=== PATIENT | male | born 1980 | race Two or more races ===

== ENCOUNTER 2023-08-14 10:33 | Outpatient (REF) | payer MEDICAID, SELFPAY ==
[2023-08-14 14:49] LABS: MANUAL DIFF FLAG NO
[2023-08-14 14:55] LABS: Basophils Absolute Auto 0.1 X10*3/uL (0.0-0.2); Basophils Percent Auto 1.1 % (0-2); Eosinophils Absolute Auto 0.2 X10*3/uL (0.0-0.4); Eosinophils Percent Auto 2.3 % (0-4); Hematocrit 43.8 % (42.0-52.0); Hemoglobin 15.2 g/dl (14.0-18.0); Imm Gran Abs Auto 0.04 X10*3/uL (0.00-0.03); Imm Gran Pct Auto 0.5 % (0.0-0.4); Lymphocytes Absolute Auto 3.1 X10*3/uL (1.2-4.9); Lymphocytes Percent Auto 35.7 % (20-40); Mean Corpuscular HGB Conc 34.7 g/dl (31.0-36.0); Mean Corpuscular Hemoglobin 28.9 pg (27.0-33.0); Mean Corpuscular Volume 83.3 fL (80.0-98.0); Mean Platelet Volume 11.8 fL (9.4-12.4); Monocytes Absolute Auto 0.7 X10*3/uL (0.1-1.2); Monocytes Percent Auto 8.5 % (2-11); Neutrophils Absolute Auto 4.4 x10*3/uL (2.0-8.3); Neutrophils Percent Auto 51.9 % (45-73); Platelet Count 219 X10*3/uL (160-400); Red Blood Count 5.26 X10*6/uL (4.60-5.80); Red Cell Distribution Width 12.8 % (11.0-16.0); White Blood Count 8.6 X10*3/uL (4.8-10.8)
[2023-08-14 15:10] LABS: Alanine Aminotransferase 30 U/L (0-40); Anion Gap 11 (12-20); Aspartate Amino Transferase 15 U/L (5-37); Blood Urea Nitrogen 17 mg/dL (9-16); Calcium 9.9 mg/dL (8.4-10.2); Carbon Dioxide 26 mmol/L (22-29); Chloride 106 mmol/L (96-108); Estimated Glomerular Filt Rate > 60; Glucose Random 89 mg/dL (60-115); Iron 105 mcg/dL (45-160); Percent Iron Saturation 35 % (15-50); Potassium 4.1 mmol/L (3.3-5.1); Sodium 139 mmol/L (135-145); Total Iron Binding Capacity 298 mcg/dL (228-428); Unsaturated Iron Binding 193 ug/dL
[2023-08-14 15:29] LABS: Ferritin 247 ng/mL (20-250); TSH reflex Free T4 0.73 uIU/mL (0.32-4.0)
[2023-08-14 15:51] LABS: Folate 6.6 ng/mL (> or = 4.0); Vitamin B12 524 pg/mL (200-900)
== END 2023-08-14 10:34 | disposition home or self-care (01) ==
LOC: HO.CHCLDS 10:33
PROVIDERS: Visit Provider Pediatrics
DX: G47.33 Obstructive sleep apnea (adult) (pediatric) (principal); K21.9 Gastro-esophageal reflux disease without esophagitis; Z68.32 Body mass index [BMI] 32.0-32.9, adult; D64.9 Anemia, unspecified
CPT/HCPCS: 36415; 80048; 82607; 82728; 82746; 83540; 84443; 84450; 84460; 85025

== ENCOUNTER 2023-10-01 13:07 | Outpatient (REF) | payer MEDICAID, SELFPAY ==
[2023-10-01 15:09] LABS: Cholesterol 160 mg/dL (<200); HDL Cholesterol 31 mg/dL (>40); LDL Cholesterol Calculated 109 mg/dL (<100); Triglycerides 100 mg/dL (<150)
== END 2023-10-01 13:08 | disposition home or self-care (01) ==
LOC: HO.CHCLDS 13:07
PROVIDERS: Visit Provider Family Medicine
DX: E78.2 Mixed hyperlipidemia (principal)
CPT/HCPCS: 36415; 80061

== ENCOUNTER 2024-07-28 16:11 | Outpatient (REF) | payer SELFPAY ==
[2024-07-28 17:47] LABS: Appearance Urine Clear; Color Urine Yellow; Glucose Urine UA Negative (Negative); Leukocyte Esterase Urine Negative (Negative); Nitrite Urine Negative (Negative); Specific Gravity - Urine 1.015 (1.005-1.025); Urine Blood Negative (Negative); Urine Ketones Negative (Negative); Urine Protein Negative (Neg-Trace)
[2024-07-28 17:49] LABS: Bacteria Urine None Seen (None Seen); Hyaline Casts Urine 0-2 /LPF (0-2); RBC Urine 0-2 /HPF (0-2); Squamous Epithelial Cell Urine 0-2 /HPF (0-2); WBC Urine 0-5 /HPF (0-5)
== END 2024-07-28 16:12 | disposition home or self-care (01) ==
LOC: HO.CHCLNP 16:11
PROVIDERS: Visit Provider Internal Medicine
DX: R31.0 Gross hematuria (principal)
CPT/HCPCS: 81001

== ENCOUNTER 2025-06-01 08:01 | Outpatient (REF) | payer MEDICAID, SELFPAY ==
--- OUTSIDE RECORDS SUMMARY | 2025-05-31 11:15 | XMS_ITS | Encounter Summary ---
Author Organization [employer] Address [address] [place] [address] Care Team Providers Care Ruffling Hemmer Automatic Name Role Phone Priscilla Jones MD Primary Care Provider [phone] Reason for Referral * Cardiology (Routine) - Authorized Specialty Diagnoses / Procedures Referred By Contac t Referred To Contact Cardiology Diagnoses Atypical chest pain Procedures Holter monitor - 72 hour Candice Valle MD [address] [place] [address] Phone: tel: fax: [address] Phone: tel: fax: Referral ID Status Reason Start Date Expiration Date V isits Requested Visits Authorized [id number] Authorized 05/31/2025 05/31/2026 1 1 Encounter Details Date Type Department Care Team (Late st Contact Info) Description 05/31/2025 11:15 AM EDT Office Visit [facility] [address] [place] [address] Candice Valle MD [address] [place] [address] Atypical chest pain (Primary Dx); Mixed hyperlipidemia; Dietary counseling; Exercise counseling; COLLEEN on CPAP; Supraclavicular adenopathy Social History Tobacco Use Types Packs/Day Years Used Date Smoking Tobacco: Never Passive Smoke Exposure: Never Smokeless Tobacco: Never Alcohol Use Standard Drinks/Week Comments Never 0 (1 standard drink = 0.6 oz pur e alcohol) Depression Answer Date Recorded Patient Health Questionnaire-9 Score 0 09/19/2022 Housing Stability Answer Date Recorded What is your housing situation today? I have jodi tinoco 09/29/[address] you li ve. Do you have problems with any of the following? None of the above 09/29/2023 Food Insecurity Answer Date Recorded Within the past 12 months, y ou worried that your food would run out before you got money to buy more: Never True 09/29/2023 Within the past 12 months,th e food you bought just didn't last and you didn't have enough money to get more: Never True Transportation Answer Date Recorded In the past 12 months, has l ack of transportation kept you from medical appts, meetings, work or from getting things needed for daily living? No 09/29/2023 Utilities Answer Date Recorded In the past 12 months, has t he electric, gas, oil or water company threatened to shut off services in your home? No 09/29/2023 Depression Answer Date Recorded Patient Health Questionnaire-2 Score 0 09/19/2022 Sex and Gender Information Value Date Recorded Sex Assigned at Male 07/31/2022 8:37 AM EST Legal Sex Male 8:35 AM EST Gender Identity Male 07/31/2022 8:37 AM EST Sexual Orientation Choose not to disclose 2022 9:20 AM EST documented as of this encounter Last Filed Vital Signs Vital Sign Reading Time Taken Comments Blood Pressure 112/80 05/31/2025 11:34 AM EDT Pulse 85 05/31/2025 11:34 AM EDT Temperature 36.6 C (97.8 F) 05/31/2025 11:34 AM EDT Respiratory Rate 20 05/31/2025 11:34 AM EDT Oxygen Saturation 95% 05/31/2025 11:34 AM EDT Inhaled Oxygen Concentration - - Weight 97.1 kg (214 lb) 05/31/2025 11:34 AM EDT Height - - Body Mass Index 33.98 07/28/2024 10:01 AM EST documented in this encounter Progress Notes * Candice Valle MD - 05/31/2025 11:15 AM EDT Subjective Patient ID: Sivakumar Bhat is a 45 y.o. male who presents for chest pain. Sivakumar is a 45-year-old male patient of Dr. Jones here for follow-up of chest pain. Patient states has been getting palpitations and occasional chest pain for the past year or so. Patient has a past medical history of hypertension, obesity, and anxiety for which he gets marijuana at the dispensary. Patient is not a smoker or drinker. He had an EKG done today which showed a heart rate of 71 bpm andsinus rhythm. Patient states has a family history of CAD in his dad and A-fib in his mother. Chest discomfort can happen at rest or exertion and is associated with palpitations and shortness of breath. Patient denies fever, weight loss or hemoptysis. No recent travel. Patient's last chest x-ray was from 2019 and was normal. PCP had referred him for an outpatient stress test last year but due to lack of insurance he never went. He did have a recent sleep study and has been prescribed his CPAP machine which he is using nightly and has been helping with energy level. Review of Systems Constitutional: Negative for activity change, chills, fatigue, fever and unexpected weight change. HENT: Negative for trouble swallowing. Respiratory: Positive for chest tightness. Negative for cough, shortness of breath and wheezing. Cardiovascular: Positive for chest pain and palpitations. Negative for leg swelling. Gastrointestinal: Negative for abdominal pain and blood in stool. Endocrine: Negative for polydipsia and polyuria. Genitourinary: Negative for decreased urine volume, difficulty urinating, dysuria and hematuria. Musculoskeletal: Negative for arthralgias, gait problem and neck pain. Skin: Negative for color change and rash. Neurological: Negative for dizziness and headaches. Hematological: Negative for adenopathy. Psychiatric/Behavioral: Negative for dysphoric mood, hallucinations, sleep disturbance and suicidalideas. The patient is not nervous/anxious. Objective BP 112/80 (BP Location: Left arm, Patient Position: Sitting, BP Cuff Size: Adult) Pulse85 Temp 97.8 ??F (36.6 ??C) (Oral) Resp 20 Wt 214 lb (97.1 kg) SpO2 95% BMI 33.98 kg/m?? Physical Exam Vitals reviewed. Constitutional: General: He is not in acute distress. Appearance: He is obese. He is not ill-appearing. HENT: Head: Normocephalic. Mouth/Throat: Mouth: Mucous membranes are moist. Cardiovascular: Rate and Rhythm: Normal rate and regular rhythm. Heart sounds: Normal heart sounds. No murmur heard. No gallop. Pulmonary: Effort: Pulmonary effort is normal. No respiratory distress. Breath sounds: Normal breath sounds. No wheezing. Abdominal: General: There is distension. Palpations: There is no mass. Tenderness: There is no abdominal tenderness. Musculoskeletal: Cervical back: Normal range of motion. Right lower leg: No edema. Left lower leg: No edema. Lymphadenopathy: Upper Body: Right upper body: No supraclavicular, axillary or epitrochlear adenopathy. Left upper body: Supraclavicular adenopathy present. No axillary or epitrochlear adenopathy. Skin: Findings: No rash. Neurological: General: No focal deficit present. Mental Status: He is alert and oriented to person, place, and time. Mental status is at baseline. Psychiatric: Mood and Affect: Mood normal. Thought Content: Thought content normal. Judgment: Judgment normal. Assessment/Plan Diagnoses and all orders for this visit: Atypical chest pain Comments: Could be secondary to anxiety or any underlying issue. Check labs and chest x- ray today. Order Holter monitor as outpatient. Refer to cardio if needed. Orders: - XR Chest 2 Views; Future - Basic Metabolic Panel, Fasting; Future - CBC auto differential; Future - TSH W/Reflex to FT4; Future - Hepatic Function Panel; Future - Lipid Panel, Standard; Future - Sed Rate by Modified Westergren; Future Mixed hyperlipidemia Comments: Recheck lipid profile. Treat if needed follow-up with PCP scheduled.. Orders: - Basic Metabolic Panel, Fasting; Future - CBC auto differential; Future - TSH W/Reflex to FT4; Future - Hepatic Function Panel; Future - Lipid Panel, Standard; Future - Sed Rate by Modified Westergren; Future Dietary counseling Exercise counseling COLLEEN on CPAP Comments: Continue good compliance with CPAP follow-up with PCP and sleep medicine. Supraclavicular adenopathy Comments: Patient has a left-sided supraclavicular adenopathy palpable on exam today. Patient states this seems to have been noticed in his last ER visit. Labs and chest x-ray ordered today. Call patient with results and order ultrasound of adenopathy. Follow-up with me or PCP scheduled. PCP made aware of this finding. documented in this encounter Plan of Treatment Upcoming Encounters Date Type Department Care Team (Late st Contact Info) Description 07/14/2025 2:30 PM EST Office Visit [facility] MED & PEDS [address] [place] [address] Priscilla Jones MD [address] [place] [address] Scheduled Orders Name Type Priority Associated Diagnoses Orde r Schedule XR Chest 2 Views Imaging Routine Atypical chest pain Expected: 05/31/2025, Expires: 05/31/2026 Basic Metabolic Panel, Fasting Lab Routine Atypical chest pain Mixed hyperlipidemia Expected: 05/31/2025 (Approximate), Expires: 05/31/2026 CBC auto differential Lab Routine Atypical chest pain Mixed hyperlipidemia Expected: 05/31/2025 (Approximate), Expires: 05/31/2026 TSH W/Reflex to FT4 Lab Routine Atypical chest pain Mixed hyperlipidemia Expected: 05/31/2025 (Approximate), Expires: 05/31/2026 Hepatic Function Panel Lab Routine Atypical chest pain Mixed hyperlipidemia Expected: 05/31/2025 (Approximate), Expires: 05/31/2026 Lipid Panel, Standard Lab Routine Atypical chest pain Mixed hyperlipidemia Expected: 05/31/2025 (Approximate), Expires: 05/31/2026 Sed Rate by Modified Westergren Lab Routine Atypical chest pain Mixed hyperlipidemia Expected: 05/31/2025, Expires: 05/31/2026 Holter monitor - 72 hour Cardiac Services Routine Atypical chest pain Expected: 05/31/2025 (Approximate), Expires: 05/31/2027 documented as of this encounter Visit Diagnoses Diagnosis Atypical chest pain- Primary Other chest pain Mixed hyperlipidemia Dietary counseling Dietary surveillance and counseling Exercise counseling COLLEEN on CPAP Supraclavicular adenopathy Enlargement of lymph nodes documented in this encounter Additional Health Concerns Assessment Noted Time PHQ-9 Depression Total Score: 0 09/19/19 23 9:51 AM EST documented as of this encounter Care Teams Ruffling Hemmer Automatic Relationship Specialty Start Date End Date Priscilla Jones MD [address] [place] [address] PCP - General Family Medicine 08/19/22 documented as of this encounter
--- OUTSIDE RECORDS SUMMARY | 2025-06-01 08:08 | XMS_ITS | Clinical Summary ---
Author Organization [facility] Address [address] [place] [address] Care Team Providers Care Engineer Process Name Role Phone Jessica Pacheco PA-C Primary Care Provider [phone] Source Comments PLEASE NOTE, if this patient is a minor, it may be UNLAWFUL to discuss sensitive information that is contained in these records (such as FAMILY PLANNING, MENTAL HEALTH or SUBSTANCE ABUSE) with the minor patient's parent or other person without the patient's specific authorization.[facility] Allergies No known active allergies Medications VENTOLIN HFA 90 mcg/actuation inhaler Inhale 90 Inhalers into the lungs 7 Active fluticasone (FLOVENT HFA) 220 mcg/actuation inhaler Inhale 2 Puffs into the lungs 2 (two) times daily 1 Inhaler 5 8 Active omeprazole (PRILOSEC) [address] Clements ons:Dyspepsia Take 1 Cap by mouth every morning before breakfast Do not crush or chew. 30 Cap 5 8 Active levalbuterol tartrate (XOPENEX HFA) 45 mcg/actuation inhaler INHALE 2 PUFFS EVERY 4 HOURS NEEDED FOR WHEEZING OR SHORTNESS OF BREATH 3 8 Active SYMBICORT 160-4.5 mcg/actuation inhaler INHALE 2 PUFFS TWICE A DAY EVERY MORNING AND THE EVENING, RINSE MOUTH AND THROAT AFTER USE 3 8 Active Active Problems Problem Noted Date Diagnosed Date LLQ pain 04/16/2018 Overview (04/16/2018): CT scan done on 04-15-18 showed sigmoid diverticulitis. No abscess or free perforation identified. Trace ascites, likely reactive. 2cm intramural lipoma at rectosigmoid junction - incidental finding. Dysphagia 03/18/2018 Overview (03/31/2018): Sees Dr. Kearney - EGD done on 03-16-18 WNL. Feels that it is d/t anxiety. COLLEEN on CPAP 09/15/2017 Mild intermittent asthma without complication Atypical chest pain 09/10/2017 Bilateral carpal tunnel syndrome 09/10/2017 Mixed hyperlipidemia 09/10/2017 Hx of appendectomy 09/10/2017 Immunizations Immunization Administration Dates Next Due Flu, Preservative Free 09/10/2017 INFLUENZA, SEASONAL, INJECTABLE 09/23/2016 PNEUMOCOCCAL POLYSACCHARIDE PPV23 (Pneumovax 23) 09/23/2016 TDAP 12/12/2015 Family History Medical History Relation Name Comments Heart Problems Father Hypertension Mother Relation Name Status Comments Father Alive Mother Alive Social History Tobacco Use Types Packs/Day Years Used Date Smoking Tobacco: Former Smokeless Tobacco: Former Alcohol Use Standard Drinks/Week Comments No 0 (1 standard drink = 0.6 oz pur e alcohol) Social Connections Answer Date Recorded Social Connections and Isolation 0 04/20/2019 Financial Resource Strain Answer Date R ecorded Financial Resource Strain 0 2018 Stress Answer Date Recorded Stress 0 04/20/2019 Physical Activity Answer Date Recorded Physical Activity 0 04/20/2019 Food Insecurity Answer Date Recorded Food 0 04/20/2019 Transportation Needs Answer Date Record ed Transportation 0 04/20/2019 Housing Stability Answer Date Recorded Housing 0 04/20/2019 Safety and Environment Answer Date Fortino rded Safety 0 04/20/2019 Utilities Answer Date Recorded Utilities 0 04/20/2019 Employment Answer Date Recorded Employment 0 04/20/2019 Sex and Gender Information Value Date Recorded Sex Assigned at Male 09/10/2017 10:48 AM PST Legal Sex Male 7:19 AM PDT Gender Identity Male 09/10/2017 10:48 AM PST Sexual Orientation Straight 09/10/2017 10 :48 AM PST Last Filed Vital Signs Vital Sign Reading Time Taken Comments Blood Pressure 140/70 02/17/2018 10:26 AM EDT Pulse 95 02/17/2018 10:26 AM EDT Temperature 36.8 C (98.3 F) 02/17/2018 10:26 AM EDT Respiratory Rate 18 02/17/2018 10:26 AM EDT Oxygen Saturation 98% 02/02/2018 10:38 AM EDT Inhaled Oxygen Concentration - - Weight 99.8 kg (220 lb) 02/17/2018 10:26 AM EDT Height 170 cm (5' 6.93 ) 02/17/2018 10:26 AM EDT Body Mass Index 34.53 02/17/2018 10:26 AM EDT Plan of Treatment Not on file Insurance [facility] Care Teams Engineer Process Relationship Specialty Start Date End Date Jessica Pacheco PA-C [facility] [place] [address] PCP - General Family Medicine, Physician 04/06/19
--- OUTSIDE RECORDS SUMMARY | 2025-06-01 08:08 | XMS_ITS | Encounter Summary ---
Author Organization [facility] Address [address] [place] [address] Care Team Providers Care Mining Teacher Name Role Phone Priscilla Jones MD Primary Care Provider [phone] Reason for Visit * Reason Onset Date Comments Nurse Triage 05/30/2025 Encounter Details Date Type Department Care Team ([facility] st Contact Info) Description 05/30/2025 Telephone [facility] [address] [place], [place] [id number] Priscilla Jones MD [address] [place] [address] Nurse Triage Social History Tobacco Use Types Packs/Day Years Used Date Smoking Tobacco: Never Passive Smoke Exposure: Never Smokeless Tobacco: Never Alcohol Use Standard Drinks/Week Comments Never 0 (1 standard drink = 0.6 oz pur e alcohol) Depression Answer Date Recorded Patient Health Questionnaire-9 Score 0 09/19/2022 Housing Stability Answer Date Recorded What is your housing situation today? I have jodialbin tinoco 09/29/[address] you [...] t he electric, gas, oil or water [employer] threatened to shut off services in your home? No 09/29/2023 Depression Answer Date Recorded Patient Health Questionnaire-2 Score 0 09/19/2022 Sex and Gender Information Value Date Recorded Sex Assigned at Male 07/31/2022 8:37 AM EST Legal Sex Male 8:35 AM EST Gender Identity Male 07/31/2022 8:37 AM EST Sexual Orientation Choose not to disclose 2022 9:20 AM EST documented as of this encounter Miscellaneous Notes * Telephone Encounter - Renay Oconnell RN - 05/30/2025 4:50 PM EDT Pt walked into office complaining of chest pain to FD staff. Author triaged pt. Vitals: 97.3 F oral / 68 HR regular / 20 resp rate / 118/68 R arm sit adult large / 98 % o2 room air Alert and oriented to person place time and situation. Conversation linear. No accessory muscle usewith breathing, color normal for ethnicity, no signs of flushing or pallor, mucous membranes moist.Lung sounds clear bilaterally. Pt reporting that he has been experiencing palpitations intermittently after drinking coffee or after going up 2 flights of stairs. Pain eases with rest. Pt reported that today he went to bed around 5:30 AM this morning and awoke at 2:00 PM this afternoon. Denies recent alcohol or tobacco use, doesreport recent cannabis use prior to going to bed at 5:30 AM. He was on the phone call and was having a cup of coffee and experienced episode of a palpitations in chest. Pt decided to come to office today to try and schedule an appointment. Pt reported he went to ED for chest pain prior but had leftwithout being seen but reports normal labs and normal EKG. Pt reports that he has been compliant with his BP medications. Pt reports that he only uses his Symbicort as needed instead of scheduled andhas been more months now, stated he did not feel a difference on Symbicort and is using albuterol inhaler more frequently now. Appointment scheduled for tomorrow 05/31/25 for pt to be evaluated by provider as office is closed. Author reviewed ER precautions with pt and if experiencing shortness of breath without relief of rescue inhaler or chest pain returns. Author advised for pt to take medications as prescribed. Pt verbalized understanding and agreement with plan. documented in this encounter Plan of Treatment Upcoming Encounters Date Type Department Care Team (Late st Contact Info) Description 07/14/2025 2:30 PM EST Office Visit [facility] MED & PEDS [address] [place] [address] Priscilla Jones MD [address] [place] [address] documented as of this encounter Visit Diagnoses Not on filedocumented in this encounter Additional Health Concerns Assessment Noted Time PHQ-9 Depression Total Score: 0 09/19/19 23 9:51 AM EST documented as of this encounter Care Teams Mining Teacher Relationship Specialty Start Date End Date Priscilla Jones MD [address] [place] [address] PCP - General Family Medicine 08/19/22 documented as of this encounter
--- OUTSIDE RECORDS SUMMARY | 2025-06-01 08:08 | XMS_ITS ---
Author Name [facility] Organization Unknown Care Team Organization Name Specialty Phone Email Start Date End Da [facility] 2023 [facility] 07/03/2022
--- OUTSIDE RECORDS SUMMARY | 2025-06-01 08:08 | XMS_ITS | Encounter Summary ---
Author Organization [facility] Address [address] [place] [address] Care Team Providers Care Trap Operator Name Role Phone Priscilla Jones MD Primary Care Provider [phone] Encounter Details Date Type Department Care Team (Late st Contact Info) Description 08/03/2024 Telephone [facility] [address] [place] [address] [place] Social History Tobacco Use Types Packs/Day Years Used Date Smoking Tobacco: Every Day Cigarettes Passive Smoke Exposure: Never Smokeless Tobacco: Never [...] encounter Miscellaneous Notes * Telephone Encounter - Praful Schrader - 08/03/2024 12:20 PM EST PT is returning missed call. Please call him back. [facility] was unavailable CS documented in this encounter Plan of Treatment Upcoming Encounters Date Type Department Care Team (Late st Contact Info) Description 07/14/2025 2:30 PM EST Office Visit [facility] PEDS [address] [place] [address] Priscilla Jones MD [address] [place] [address] documented as of this encounter Visit Diagnoses Not on filedocumented in this encounter Additional Health Concerns Assessment Noted Time PHQ-9 Depression Total Score: 0 09/19/19 9:51 AM EST documented as of this encounter Care Teams Trap Operator Relationship Specialty Start Date End Date Priscilla Jones MD [address] [place] [address] PCP - General Family Medicine 08/19/22 documented as of this encounter
--- OUTSIDE RECORDS SUMMARY | 2025-06-01 08:09 | XMS_ITS | Clinical Summary ---
Author Organization [facility] Address [address] [place] [address] Care Team Providers Care Parts Order And Stock Clerk Name Role Phone Chuy Mccall MD Primary Care Provider [phone] Allergies No known active allergies Medications OMEprazole (PriLOSEC) 10 MG capsule Take 10 mg by mouth daily. Active Social History Tobacco Use Types Packs/Day Years Used Date Smoking Tobacco: Never Assessed Sex and Gender Information Value Date Recorded Sex Assigned at Not on file Legal Sex Male 2:27 PM EDT Gender Identity Not on file Sexual Orientation Not on file Last Filed Vital Signs Vital Sign Reading Time Taken Comments Blood Pressure 155/79 02/20/2020 7:52 PM EDT Pulse 73 02/20/2020 7:52 PM EDT Temperature 36.1 C (96.9 F) 02/20/2020 1:29 PM EDT Respiratory Rate 18 02/20/2020 7:52 PM EDT Oxygen Saturation 98% 02/20/2020 7:52 PM EDT Inhaled Oxygen Concentration - - Weight - - Height - - Body Mass Index - - Plan of Treatment Health Maintenance Due Date Last Done Comments Hepatitis C Virus Screening 1982 HIV Screening 1995 DTaP/Tdap/Td Vaccines (1 - Tdap) 2001 Hepatitis B Vaccines (1 of 3 - 19+ 3-dose series) 2001 HPV Vaccines (1 - 3-dose SCD M series) 2009 Influenza Vaccine 04/01/2025 09/10/2017 COVID-19 Vaccine (2 - 2024-2 6 season) 2025 12/19/2020 Pneumococcal Vaccine: Pediat berna (0-5 Years) and At-Risk Patients (6 to 49 Years) Aged Out No longer eligible b ased on patient's age to complete this topic Insurance [facility] Care Teams Parts Order And Stock Clerk Relationship Specialty Start Date End Date Chuy Mccall MD [address] [facility] [address] [place] [address] PCP - General 06/06/18
--- OUTSIDE RECORDS SUMMARY | 2025-06-01 08:09 | XMS_ITS | Encounter Summary ---
Author Organization [facility] Address [address] [place] [address] Care Team Providers Care Investment Officer Name Role Phone Chuy Mccall MD Primary Care Provider [phone] Encounter Details Date Type Department Care Team (Late st Contact Info) Description 06/23/2020 Lab Requisition [facility] [address] [place] [address] Gaudencio Ayers PA-C [address] [place] [id number] Encounter for laboratory testing for COVID-19 virus Social History Tobacco Use Types Packs/Day Years Used Date Smoking Tobacco: Never Assessed Sex and Gender Information Value Date Recorded Sex Assigned at Not on file Legal Sex Male 2:27 PM EDT Gender Identity Not on file Sexual Orientation Not on file documented as of this encounter Plan of Treatment Not on file documented as of this encounter Procedures Procedure Name Priority Date/Time Associated Diagnosis Comments (REPORT) SARS COV-2 RNA (COVID-19), QUAL Routine 06/23/2020 2:03 PM EDT Encounter for laboratory testing for COVID-19 virus [ICD-10-CM] documented in this encounter Results * SARS CoV-2 RNA (COVID-19), Qual (06/23/2020 2:03 PM EDT) Pathologist [facility] SARS CoV 2 RNA, Qual NOT DETECTED NOT DETECTED 06/25/2020 8:00 AM EDT [facility] Comment: A Not Detected (negative) test result for this test means that SARS-CoV-2 RNA was not present in the specimen above the limit of detection. A negative result does not rule out the possibility of COVID-19 and should not be used as the sole basis for treatment or patient management decisions. If COVID-19 is still suspected, based on exposure history together with other clinical findings, re-testing should be considered in consultation with public health authorities. Laboratory test results should always be considered in the context of clinical observations and epidemiological data in making a final diagnosis and patient management decisions. REFERENCE RANGE: NOT DETECTED This patient specimen was tested using an FDA EUA pooling method. Negative results from pooled testing should not be treated as definitive. If the patient's clinical signs and symptoms are inconsistent with a negative result or results are necessary for patient management, then the patient should be considered for individual testing. Specimens with low viral loads may not be detected in sample pools due to the decreased sensitivity of pooled testing. Please review the Fact Sheets and FDA authorized labeling available for health care providers and patients using the following websites: https://www.[employer]/home/Covid-19/HCP/QuestLDTP/ fact-sheet https://www.[employer]/home/Covid-19/Patients/QuestLDTP/ fact-sheet.html This test has been authorized by the FDA under an Emergency Use Authorization (EUA) for use by authorized laboratories. Due to the current public health emergency, [facility] is receiving a high volume of samples from a wide variety of swabs and media for COVID-19 testing. In order to serve patients during this public health crisis, samples from appropriate clinical sources are being tested. Negative test results derived from specimens received in non-commercially manufactured viral collection and transport media, or in media and sample collection kits not yet authorized by FDA for COVID-19 testing should be cautiously evaluated and the patient potentially subjected to extra precautions such as additional clinical monitoring, including collection of an additional specimen. Methodology: Nucleic Acid Amplification Test (NAAT) includes RT-PCR or TMA Additional information about COVID-19 can be found at the [facility] website: www.[employer]/Covid19. Microbiology Nasopharyngeal swab / Unknown 06/23/2020 2:03 PM EDT 06/23/2020 2:03 PM EDT [facility] 06/25/2020 8:00 AM EDT Performing Organization Information: Site ID: [id number] Name: [facility] Address: [address] [place] [address] [address] [address] Director: COLLETTE BAHENA MD [facility] License number [id number] Gaudencio Ayers PA-C BODY FLUIDS AND STOOLS OR DERABLES Final Result Performing Organization Address City/State/[facility] de Phone Number [facility] documented in this encounter Visit Diagnoses Diagnosis Encounter for laboratory testing for COVID-19 virus documented in this encounter Care Teams Investment Officer Relationship Specialty Start Date End Date Chuy Mccall MD [address] [facility] Dolly [address] [address] PCP - General 06/06/18 documented as of this encounter
--- OUTSIDE RECORDS SUMMARY | 2025-06-01 08:09 | XMS_ITS | Clinical Summary ---
Author Organization [employer] Address [address] [facility] [address] [place] [address] Care Team Providers Care Rag Shredder Name Role Phone Priscilla Jones MD Primary Care Provider [phone] Allergies No known active allergies Medications Symbicort 160-4.5 MCG/ACT inhalerIndicatio ns:Moderate persistent asthma, unspecified whether complicated INHALE TWO PUFFS TWICE DAILY, RINSE MOUTH AFTER USE 10.2 g 2 4 Active Additional Information Patient not taking.Reported on 08/19/2024 acetaminophen (Tylenol) 325 MG tablet TAKE 2 TABLETS BY MOUTH EVERY 4 HOURS 3 Active montelukast (Singulair) 10 MG tabletIndication s:Moderate persistent asthma, unspecified whether complicated Take 1 tablet (10 mg) by mouth in the morning. 90 tablet 1 4 Active amLODIPine (Norvasc) 5 MG tabletIndication s:Elevated blood pressure reading Take 1 tablet (5 mg) by mouth in the morning. 30 tablet 4 Active Additional Information Patient not taking.Reported on 08/19/2024 Blood Pressure kit 1 Units in the morning. 1 kit 4 Active Additional Information Patient not taking.Reported on 08/19/2024 omeprazole (PriLOSEC) [address] capsuleIndicatinorma ns:Gastroesophag eal reflux disease, unspecified whether esophagitis present TAKE ONE CAPSULE DAILY BEFORE BREAKFAST 90 capsule 1 4 Active Additional Information Patient not taking.Reported on 08/19/2024 Ventolin HFA 108 (90 Base) MCG/ACT inhalerIndicatio ns:Moderate persistent asthma, unspecified whether complicated INHALE TWO puffs BY MOUTH EVERY FOUR HOURS NEEDED FOR WHEEZING 18 g 1 12/09/202 4 Active Additional Information Patient not taking.Reported on 08/19/2024 Active Problems Problem Noted Date Diagnosed Date Elevated blood pressure reading 09/29/2023 Assessment & Plan (09/29/2023 2:33 PM EST): Uncontrolled: upon visit, patient states having constant elevated blood pressure readings at home, therefore, patient will be provided with a blood pressure kit and a low dose of BP medications. Advised that won't see any results after 3-4 days after first dose. Recommended to keep monitoring blood pressure at home, and bring readings upon next office visit. -Follow up in two weeks. Moderate persistent asthma 08/19/2022 Overview (09/19/2022): Moderate persistent asthma Recommend compliance with symbicort and added singulair to regimen, f/u 2 months. Assessment & Plan (09/29/2023 2:33 PM EST): Patient that presented visit with concerns of asthma will be provided with medication. Assessment & Plan (08/19/2022 9:48 AM EST): Patient not compliant w/ inhalers, will refill his inhalers and f/up next month, Will need ACT and adjust regimen as needed Gastroesophageal reflux disease 08/19/2022 Assessment & Plan (08/19/2022 9:49 AM EST): Requested refill for PPI, refilled, will f/u in 1 month Class 1 obesity due to exces s calories with body mass index (BMI) of 32.0 to 32.9 in adult 08/19/2022 Assessment & Plan (08/19/2022 9:49 AM EST): Patient with obesity, poor diet. Will send labs and review in next scheduled visit. LLQ pain 04/16/2018 Overview (08/19/2022): CT scan done on 04-15-18 showed sigmoid diverticulitis. No abscess or free perforation identified. Trace ascites, likely reactive. 2cm intramural lipoma at rectosigmoid junction - incidental finding. COLLEEN on CPAP 09/15/2017 Assessment & Plan (08/19/2022 9:46 AM EST): Patient new to system, reports 5 yrs of COLLEEN on CPAP, unknown settings, not feeling rested, will send to sleep specialist Atypical chest pain 09/10/2017 Assessment & Plan (10/16/2023 2:30 PM EST): Patient still reports chest pain. Since he is an active smoker I have advised for him to get a stress test to assess what is occurring. During his next hyperlipidemia F/U we will follow up on chest pain and proceed with treatment plan if needed at that time. Assessment & Plan (08/19/2022 9:50 AM EST): > 1 yr hx of central chest pain, reports happens random. Patient is obese and w/ poor diet. Will benefit of coronary syndrome w/u, will send to cards. Bilateral carpal tunnel syndrome 09/10/2017 Hx of appendectomy 09/10/2017 Mixed hyperlipidemia 09/10/2017 Assessment & Plan (10/16/2023 2:31 PM EST): Patient has uncontrolled hyperlipidemia since last time I saw him. I have educated him on nutritional changes to control hyperlipidemia. I will F/U with patient in 3 months. Labs: Lipid panel Assessment & Plan (09/29/2023 2:33 PM EST): Patient will be send for labs for further evaluation. -Labs: Lipid Panel. Resolved Problems Problem Noted Date Diagnosed Date Resolved Date Dysphagia 03/18/2018 08/19/2022 Overview (08/19/2022): Sees Dr. Kearney - EGD done on 03-16-18 WNL. Feels that it is d/t anxiety. Mild intermittent asthma without complication 09/10/19 18 08/19/2022 Encounters Date Type Department Care Team Description 05/31/2025 11:15 AM EDT Office Visit [facility] [address] [place] [address] Candice Valle MD Atypical chest pain (Primary Dx); Mixed hyperlipidemia; Dietary counseling; Exercise counseling; COLLEEN on CPAP; Supraclavicular adenopathy 05/31/2025 Travel 05/30/2025 Telephone [facility] [address] [place] [address] Priscilla Jones MD Nurse Triage from Last 3 Months Immunizations Immunization Administration Dates Next Due Influenza injectable quadriv alent preservative free 09/10/2017 Influenza, IIV3, injectable 05/17/2019, 7,10/11/2013 Pneumococcal Polysaccharide PPSV23 04/14/2020,,10/11/2013 Tdap 02/01/2024,12/12/2015,05/17/2014 Social History Tobacco Use Types Packs/Day Years Used Date Smoking Tobacco: Never Passive Smoke Exposure: Never Smokeless Tobacco: Never Tobacco Cessation:Counseling Given: Not Answered Alcohol Use Standard Drinks/Week Comments Never 0 [...] not to disclose 2022 9:20 AM EST Last Filed Vital Signs Vital Sign Reading Time Taken Comments Blood Pressure 112/80 05/31/2025 11:34 AM EDT Pulse 85 05/31/2025 11:34 AM EDT Temperature 36.6 C (97.8 F) 05/31/2025 11:34 AM EDT Respiratory Rate 20 05/31/2025 11:34 AM EDT Oxygen Saturation 95% 05/31/2025 11:34 AM EDT Inhaled Oxygen Concentration - - Weight 97.1 kg (214 lb) 05/31/2025 11:34 AM EDT Height 169 cm (5' 6.54 ) 07/28/2024 10:01 AM EST Body Mass Index 33.98 07/28/2024 10:01 AM EST Plan of Treatment Upcoming Encounters Date Type Department Care Team (Late st Contact Info) Description 07/14/2025 2:30 PM EST Office Visit [facility] [address] [place] [address] Priscilla Jones MD [address] [place] [address] Health Maintenance Due Date Last Done Comments Disability Screening 1982 Alcohol/Substance Use Screening 1994 Family Planning (PISQ) 1997 HPV Vaccines (1 - Male 3-dose series) 1997 Hepatitis B Vaccines (1 of 3 - 19+ 3-dose series) 2001 Pneumococcal Vaccine: Pediatrics (0 to 5 Years) and At-Risk Patients (6 to 49) Years (2 of 2 - PCV) 04/14/2021 04/14/2020, 09/23/2016, 10/11/2013 Depression Screening 09/19/2023 09/19/2022, 09/19/19 SDOH Screening 09/29/2024 09/29/2023 Dental Oral Exam 02/18/2025 08/19/2024 COVID-19 Vaccine ( - season) 2025 Influenza Vaccine (#1) 2025 9, 09/10/2017, 09/23/2016, Additional history exists Dental Prophylaxis 05/06/2025 11/02/2024 Dental X-Ray: Bitewings 08/20/2025 08/19/2024 Tobacco Screening 05/31/2026 05/31/2025 Dental X-Ray: Full Mouth 08/20/2027 08/19/2024 Lipid Panel 10/01/2028 10/01/2023, 08/21/2022 Zoster Vaccines (1 of 2) 01/14/2032 DTaP/Tdap/Td Vaccines (4 - Td or Tdap) 01/31/2034 02/01/2024, 12/12/2015, 05/17/2014 RSV Patients and Patients Aged 60 years or older (1 - 1-dose 75+ series) 2057 HIV Screening Completed 08/21/2022 Hepatitis C Screening Completed 08/21/2022 HIB Vaccines Aged Out No longer eligi ble based on patient's age to complete this topic Hepatitis A Vaccines Aged Out No long er eligible based on patient's age to complete this topic IPV Vaccines Aged Out No longer eligi ble based on patient's age to complete this topic Meningococcal B Vaccine Aged Out No l onger eligible based on patient's age to complete this topic Meningococcal Vaccine Aged Out No kendall lucy eligible based on patient's age to complete this topic RSV under 20 months Aged Out No longe r eligible based on patient's age to complete this topic Rotavirus Vaccines Aged Out No longer eligible based on patient's age to complete this topic Procedures Procedure Name Priority Date/Time Associated Diagnosis Comments PROPHYLAXIS - ADULT Routine 11/02/2024 3 :00 PM EST INTRAORAL - COMPLETE SERIES OF RADIOGRAPHIC IMAGES Routine 08/19/2024 1:00 PM EST Periodontal disease 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 COMPREHENSIVE ORAL EVALUATION - NEW OR ESTABLISHED PATIENT Routine 08/19/2024 1:00 PM EST Periodontal disease 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 LIPID PANEL, STANDARD Routine 10/01/2023 1:09 PM EST Mixed hyperlipidemia HEPATITIS C AB W/REFL TO HCV RNA, QN, PCR Routine 08/21/2022 9:02 AM EST Class 1 obesity due to excess calories with body mass index (BMI) of 32.0 to 32.9 in adult, unspecified whether serious comorbidity present HIV 1/2 ANTIGEN/ANTIBODY, FOURTH GENERATION W/RFL Routine 08/21/2022 9:02 AM EST Class 1 obesity due to excess calories with body mass index (BMI) of 32.0 to 32.9 in adult, unspecified whether serious comorbidity present from Last 3 Months or Most Recently Relevant to Health Maintenance Results * (ABNORMAL) Lipid Panel, Standard (10/01/2023 1:09 PM EST) Triglycerides 100 <150 mg/dL [facility] Comment:Desirable Triglyceri de: less than 150 mg/dLBorderline High Triglyceride 150-199 mg/dLHigh Triglyceride: 200-499 mg/dLVery High Triglyceride: greater than or equal to 5OO mg/dL Cholesterol 160 <200 mg/dL [facility] Comment:Desirable Cholestero l: less than 200 mg/dLBorderline High Cholesterol: 200-239 mg/dLHigh Cholesterol: greater than 239 mg/dL LDL Cholesterol Calculated 109(H) <100 mg/dL [facility] Comment:Desirable LDL: less than 100 mg/dLNear Optimal/Above Optimal LDL: 110- 129 mg/dLBorderline High LDL: 130-159 mg/dLHigh LDL: 160-189 mg/dLVery High LDL: greater than or equal to 190 mg/dL HDL Cholesterol 31(L) >40 mg/dL [facility] Comment:Desirable HDL: great er than 40 mg/dL Note: This HDL assay may give artificially low results in patients with liver disease. Blood Venous blood specimen / Unknown 10/01/2023 1:09 PM EST 10/01/2023 2:23 PM EST us Priscilla Jones MD LAB BLOOD ORDERABLES Final Re sult [facility] [address] [place], [place] [phone] * Hepatitis C Antibody with Reflex to HCV, RNA, Quantitative, Real-Time PCR (08/21/2022 9:02 AM EST) Hepatitis C Antibody NON-REACT LEXI NON-REACT LEXI [facility] Index 0.06 <1.00 [facility] Comment: HCV antibody was non-reactive. There is no laboratory evidence of HCV infection. In most cases, no further action is required. However, if recent HCV exposure is suspected, a test for HCV RNA (test code 01411) is suggested. For additional information please refer to http://[facility].[employer]/faq/VPW55d4 (This link is being provided for informational/ educational purposes only.) Blood Venous blood specimen / Unknown 08/21/2022 9:02 AM EST 08/21/2022 9:02 AM EST Narrative [facility] - 08/27/2022 9:50 PM EST FASTING:YES FASTING: YES us Priscilla Jones MD LAB BLOOD ORDERABLES Final Re sult [facility] [place] [address] [facility], [facility], [place] [address] [facility] [address], ([address]) [place] [address] * HIV-1/2 Antigen and Antibodies, Fourth Generation, with Reflexes (08/21/2022 9:02 AM EST) HIV Antigen/Antibody, 4th Generation NON-REAC TIVE NON-REAC TIVE [facility] Comment: HIV-1 antigen and HIV-1/HIV-2 antibodies were not detected. There is no laboratory evidence of HIV infection. PLEASE NOTE: This information has been disclosed to you from records whose confidentiality may be protected by state law. If your state requires such protection, then the state law prohibits you from making any further disclosure of the information without the specific written consent of the person to whom it pertains, or as otherwise permitted by law. A general authorization for the release of medical or other information is NOT sufficient for this purpose. For additional information please refer to http://education.[employer]/faq/DWW005 (This link is being provided for informational/ educational purposes only.) The performance of this assay has not been clinically validated in patients less than 2 years old. Blood Venous blood specimen / Unknown 08/21/2022 9:02 AM EST 08/21/2022 9:02 AM EST Narrative [facility] - 08/27/2022 9:50 PM EST FASTING:YES FASTING: YES us Priscilla Jones MD LAB BLOOD ORDERABLES Final Re sult [facility] [address] [facility], [facility], [place] [address] [facility] [address] [facility], ([address]) [place] [address] from Last 3 Months or Most Recently Relevant to Health Maintenance [place] [address] C3 [facility] MEDICAID STAND ADULT Care Teams Rag Shredder Relationship Specialty Start Date End Date Priscilla Jones MD [address] [place] [phone] PCP - General Family Medicine 08/19/22
--- OUTSIDE RECORDS SUMMARY | 2025-06-01 08:09 | XMS_ITS | Encounter Summary ---
Author Organization [employer] Address [address] [place] [address] Care Team Providers Care Wire Steward Name Role Phone Priscilla Jones MD Primary Care Provider [phone] Encounter Details Date Type Department Care Team (Latest Contact Info) Description 05/31/2025 Travel Social History Tobacco Use Types Packs/Day Years [...] AM EST documented as of this encounter Plan of Treatment Upcoming Encounters Date Type Department Care Team (Late st Contact Info) Description 07/14/2025 2:30 PM EST Office Visit [facility] [address] [place] [address] Priscilla Jones MD [address] [place] [address] documented as of this encounter Visit Diagnoses Not on filedocumented in this encounter Additional Health Concerns Assessment Noted Time PHQ-9 Depression Total Score: 0 09/19/19 9:51 AM EST documented as of this encounter Care Teams Wire Steward Relationship Specialty Start Date End Date Priscilla Jones MD [address] [place] [address] PCP - General Family Medicine 08/19/22 documented as of this encounter
[2025-06-01 14:04] LABS: MANUAL DIFF FLAG NO
[2025-06-01 14:08] LABS: Hematocrit 41.7 % (42.0-52.0); Hemoglobin 14.5 g/dl (14.0-18.0); Imm Gran Abs Auto 0.03 X10*3/uL (0.00-0.03); Imm Gran Pct Auto 0.4 % (0.0-0.4); Lymphocytes Absolute Auto 2.6 X10*3/uL (1.2-4.9); Mean Corpuscular HGB Conc 34.8 g/dl (31.0-36.0); Mean Corpuscular Hemoglobin 28.4 pg (27.0-33.0); Mean Corpuscular Volume 81.6 fL (80.0-98.0); NRBC Abs Auto 0.000 X10*3/uL (0.0-0.012); NRBC Pct Auto 0.0 /100WBC (0.0-0.2); Platelet Count 198 X10*3/uL (160-400); Red Blood Count 5.11 X10*6/uL (4.60-5.80); White Blood Count 8.1 X10*3/uL (4.8-10.8)
[2025-06-01 14:40] LABS: Alanine Aminotransferase 56 U/L (0-40); Albumin Level 4.6 g/dL (3.5-5.0); Alkaline Phosphatase 60 U/L (39-117); Anion Gap 10 (12-20); Aspartate Amino Transferase 30 U/L (5-37); Blood Urea Nitrogen 18 mg/dL (9-16); Calcium 9.3 mg/dL (8.4-10.2); Carbon Dioxide 26 mmol/L (22-29); Chloride 110 mmol/L (96-108); Cholesterol 166 mg/dL (<200); Estimated Glomerular Filt Rate > 60; HDL Cholesterol 32 mg/dL (>40); Potassium 4.2 mmol/L (3.3-5.1); Sodium 142 mmol/L (135-145); Total Protein 7.4 g/dL (6.5-8.0); Triglycerides 107 mg/dL (<150)
== END 2025-06-01 08:02 | disposition home or self-care (01) ==
LOC: HO.CHCLDS 08:01
PROVIDERS: Visit Provider Pediatrics
DX: R07.89 Other chest pain (principal); E78.2 Mixed hyperlipidemia
CPT/HCPCS: 36415; 80048; 80061; 80076; 84443; 85025; 85652